=== PATIENT | male | born 1965 | race Caucasian/White ===

== ENCOUNTER → 2016-04-21 | Outpatient (CLI) | payer OTHER ==
[~2016-04-21] MED LIST: DOXYCYCLINE100 M1 PO; ESCITALOPRAM20 MG PO; LEXAPRO 10 MG T10 MG PO; LEXAPRO 20 MG T20 MG PO; PRAVACHOL40 MG PO; PREDNISONE 20MG20 MG PO; RANITIDINE300 MG PO
--- NOTE | 2016-04-21 10:52 | RADIOLOGY REPORT PS360 ---
CHEST(2 VIEWS-NOT PORTABLE) HISTORY: ACUTE BRONCHOPNUEMONIA, HX PLEURAL EMPYEMA ORDERING PHYSICIAN: Adrian Rabago MD PATIENT AGE: 50 years COMPARISON: 12/26/2013 FINDINGS: The cardiomediastinal silhouette and pulmonary vascularity are within normal limits. There is blunting of the right CP angle which is chronic. Vague density is present in the right upper hemithorax laterally and could be related to pleural thickening versus patchy infiltrate.. No acute bony abnormalities. IMPRESSION: 1. Chronic pleural thickening right CP angle. 2. Vague density right upper lobe laterally which could be related to patchy infiltrate versus some pleural thickening.
== END ==
LOC: RAD 10:16
DX: J18.0 Bronchopneumonia, unspecified organism (principal); Z87.09 Personal history of other diseases of the respiratory system